=== PATIENT | male | born 1985 | race African-American/Black ===

== ENCOUNTER 2017-01-13 02:39 | Emergency (ER) | payer MEDICAID ==
[~2017-01-13] VITALS: Ht 182.9 cm; Wt 73.0 kg
[~2017-01-13 02:39] MED LIST: DIAZ5TAB PO; HYDR-3583 PO; MULT-135 PO; XARE10TA PO
[2017-01-13 02:42] VITALS: BP 99/55; PULSE 66; RESP 16; TEMP 97.6; O2SAT 99
[2017-01-13] MEDS ORDERED: ORPHENADRINE INJ 60 MG/2 ML AMP IM ONE (03:30)
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
--- NOTE | 2017-01-13 04:07 | RADRPT ---
EXAM DATE/TIME: 01/13/2017 03:29 [facility] COMPARISON: CT CERVICAL SPINE W/O CONTRAST, October 15, 2015, 5:02. INDICATIONS : Trauma, fall. RADIATION DOSE: 37.64 CTDIvol (mGy) MEDICAL HISTORY : None SURGICAL HISTORY : Fusion, cervical. ENCOUNTER: Initial ACUITY: 1 day PAIN SCALE: 8/10 LOCATION: neck TECHNIQUE: Volumetric scanning of the cervical spine was performed. Multiplanar reconstructions i n the sagittal, coronal and oblique axial planes were performed. Using automated exposure control a nd adjustment of the mA and/or kV according to patient size, radiation dose was kept as low as reason ably achievable to obtain optimal diagnostic quality images. DICOM format image data is available e lectronically for review and comparison. FINDINGS: The sagittal reconstructions demonstrate normal alignment and normal prevertebral soft tissues. The d ens is intact and there is a normal atlantoaxial relationship. Patient again noted to be status post fusion at the C5-6 level. There is mild reversal of the normal cervical lordosis. The axial images demonstrate that the vertebral bodies and posterior elements are intact. The soft ti ssues are within normal limits. There is no evidence of acute fracture or malalignment. CONCLUSION: Negative trauma CT. Bong Braun MD on January 13, 2017 at 4:04 Board Certified Radiologist. This report was verified electronically.
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
--- NOTE | 2017-01-13 04:20 | RADRPT ---
EXAM DATE/TIME: 01/13/2017 03:34 [facility] COMPARISON: No previous studies available for comparison. INDICATIONS : Trauma, fall. Chronic back pain. RADIATION DOSE: 14.97 CTDIvol (mGy) ; Combined studies - Thoracic Spine/Lumbar Spine MEDICAL HISTORY : None SURGICAL HISTORY : IVC Filter placement. ENCOUNTER: Initial ACUITY: 1 day PAIN SCALE: 8/10 LOCATION: Paraspinal TECHNIQUE: Volumetric scanning of the thoracic spine was performed. Multiplanar reconstructions in the sagittal , coronal and oblique axial planes were performed. Using automated exposure control and adjustment o f the mA and/or kV according to patient size, radiation dose was kept as low as reasonably achievable to obtain optimal diagnostic quality images. DICOM format image data is available electronically f or review and comparison. FINDINGS: Sagittal images demonstrate that the vertebral bodies are intact. The disc space heights are preserve d with no hypertrophic change. There is a mild scoliosis. The axial images demonstrate that the vertebral bodies and posterior elements are intact. The visuali zed ribs are within normal limits. The paraspinous soft tissues are unremarkable. CONCLUSION: Negative trauma study. Bong Braun MD on January 13, 2017 at 4:17 Board Certified Radiologist. This report was verified electronically.
--- NOTE | 2017-01-13 04:22 | RADRPT ---
EXAM DATE/TIME: 01/13/2017 03:36 [facility] COMPARISON: No previous studies available for comparison. INDICATIONS : Trauma, fall. Chronic back pain. RADIATION DOSE: 14.97 CTDIvol (mGy) ; Combined studies - Thoracic Spine/Lumbar Spine MEDICAL HISTORY : None SURGICAL HISTORY : IVC Filter placement. ENCOUNTER: Initial ACUITY: 1 day PAIN SCALE: 8/10 LOCATION: Paraspinal TECHNIQUE: Volumetric scanning of the lumbar spine was performed. Multiplanar reconstructions in the sagittal, coronal and oblique axial planes were performed. Using automated exposure control and adjustment of the mA and/or kV according to patient size, radiation dose was kept as low as reasonably achievable t o obtain optimal diagnostic quality images. DICOM format image data is available electronically for review and comparison. FINDINGS: VERTEBRAE: Normal vertebral body height. There is no evidence of fracture. ALIGNMENT: No evidence of subluxation. T12-L1: The thecal sac has a normal diameter. No evidence of disc bulge or protrusion. The neural foramina are patent bilaterally. L1-L2: The thecal sac has a normal diameter. No evidence of disc bulge or protrusion. The neural foramina are patent bilaterally. L2-L3: The thecal sac has a normal diameter. No evidence of disc bulge or protrusion. The neural foramina are patent bilaterally. L3-L4: The thecal sac has a normal diameter. No evidence of disc bulge or protrusion. The neural foramina are patent bilaterally. L4-L5: The thecal sac has a normal diameter. No evidence of disc bulge or protrusion. The neural foramina are patent bilaterally. L5-S1: The thecal sac has a normal diameter. No evidence of disc bulge or protrusion. The neural foramina are patent bilaterally. The inferior vena cava filter is noted. CONCLUSION: Negative trauma CT with no acute fracture or malalignment. Bong Braun MD on January 13, 2017 at 4:19 Board Certified Radiologist. This report was verified electronically.
[2017-01-13] MEDS ORDERED: CYCL10TA PO (05:01)
== END 2017-01-13 05:30 | disposition home or self-care (01) ==
LOC: NEPD 02:39
DX: M54.9 Dorsalgia, unspecified (principal); M54.2 Cervicalgia; J45.909 Unspecified asthma, uncomplicated; F17.200 Nicotine dependence, unspecified, uncomplicated; W05.0XXA Fall from non-moving wheelchair, initial encounter; Z79.899 Other long term (current) drug therapy
CPT/HCPCS: 70450; 72125; 72128; 72131; 96372; 99284; J2360

== ENCOUNTER 2017-01-18 11:00 | Observation (INO) | payer MEDICAID ==
[2017-01-18] VITALS (7 sets, daily range): BP systolic 119–165; BP diastolic 60–101; PULSE 60–78; RESP 14–19; TEMP 97.5–98.2; O2SAT 96–99
[~2017-01-18] VITALS: Ht 180.3 cm; Wt 76.5 kg
[~2017-01-18 11:00] MED LIST changes: +CYCL10TA PO; -DIAZ5TAB PO; -HYDR-3583 PO; -MULT-135 PO
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
[2017-01-18] MEDS ORDERED: SODIUM CHLORIDE 0.9% FLUSH 10 ML FLUSH IVF PRN (11:30)
--- NOTE | 2017-01-18 11:52 | RADRPT ---
EXAM DATE/TIME: 01/18/2017 11:29 [facility] COMPARISON: CHEST SINGLE AP, January 21, 2016, 14:11. INDICATIONS : Chest pain MEDICAL HISTORY : Hypertension. Deep venous thrombosis SURGICAL HISTORY : IVC Filter placement. C-spine fusion. ENCOUNTER: Initial ACUITY: 1 day PAIN SCORE: 3/10 LOCATION: chest FINDINGS: A single view of the chest demonstrates the lungs to be symmetrically aerated without evidence of mas s, infiltrate or effusion. The cardiomediastinal contours are unremarkable. Osseous structures are intact. Cervical spinal fusion plate. CONCLUSION: Normal examination. Emiliano Escobedo Jr., MD on January 18, 2017 at 11:50 Board Certified Radiologist. This report was verified electronically.
[2017-01-18 12:15] LABS: AUTOMATED NEUTROPHIL # 2.3 TH/MM3 (1.8-7.7); BASOPHIL % 0.7 % (0.0-2.0); EOSINOPHIL % 0.9 % (0.0-4.0); HEMATOCRIT 38.3 % (39.0-51.0); HEMOGLOBIN 11.8 GM/DL (13.0-17.0); LYMPHOCYTE # 1.9 TH/MM3 (1.0-4.8); MEAN CELL VOLUME 73.9 FL (80.0-100.0); MEAN CORPUSCULAR HEMOGLOBIN 22.7 PG (27.0-34.0); MEAN CORPUSCULAR HGB CONC 30.7 % (32.0-36.0); MEAN PLATELET VOLUME 8.4 FL (7.0-11.0); MONO % 9.6 % (0.0-8.0); MONOCYTE # 0.5 TH/MM3 (0-0.9); NEUT % 48.8 % (16.0-70.0); PLATELET COUNT 177 TH/MM3 (150-450); RED BLOOD COUNT 5.19 MIL/MM3 (4.50-5.90); RED CELL DISTRIBUTION WIDTH 14.3 % (11.6-17.2); WHITE BLOOD COUNT 4.7 TH/MM3 (4.0-11.0)
[2017-01-18 12:26] LABS: INTERNATIONAL NORMALIZED RATIO 1.1 RATIO; PROTHROMBIN TIME - PATIENT 10.7 SEC (9.8-11.6)
[2017-01-18 12:27] LABS: D-DIMER LESS THAN 0.19 MG/L FEU (0.00-0.50)
[2017-01-18 12:32] LABS: BICARBONATE 27.1 MEQ/L (21.0-32.0); CREATININE 0.85 MG/DL (0.60-1.30); MAGNESIUM 1.8 MG/DL (1.5-2.5)
[2017-01-18 12:42] LABS: TROPONIN I 0.16 NG/ML (0.02-0.05)
[2017-01-18] MEDS ORDERED: ASPIRIN 81 MG CHEW TAB CHEW SCH (13:15)
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
[2017-01-18] MEDS ORDERED: SODIUM CHLORIDE 0.9% FLUSH 10 ML FLUSH IV FLUSH PRN (15:00)
[2017-01-18] MEDS ORDERED: NITROGLYCERIN 0.4 MG SL 25 TABS/BTL SL PRN (15:00)
[2017-01-18] MEDS ORDERED: MORPHINE SULFATE 2 MG/ML INJ IV PUSH PRN (16:00)
[2017-01-18] MEDS: ACETAMINOPHEN 500 MG CPLT PO PRN ×2 (16:04→22:43)
[2017-01-18] MEDS: RIVAROXABAN 10 MG TAB PO SCH (16:06)
[2017-01-18] MEDS: SODIUM CHLOR 0.9% 1000 ML INJ 1,000 ML IV SCH (16:06)
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
[2017-01-18 18:41] LABS: TROPONIN I 0.09 NG/ML (0.02-0.05)
[2017-01-18] MEDS ORDERED: RESP: ALBUTEROL 2.5 MG/IPRATROPIUM 0.5 MG NEB (PRN) NEB (19:00)
[2017-01-18] MEDS ORDERED: cloNIDine HCL 0.1 MG TAB PO PRN (19:00)
[2017-01-18] MEDS: FAMOTIDINE 20 MG TAB PO SCH (20:59)
[2017-01-18] MEDS: SODIUM CHLORIDE 0.9% FLUSH 10 ML FLUSH IV FLUSH SCH (20:59)
[2017-01-18 23:49] LABS: TROPONIN I 0.05 NG/ML (0.02-0.05)
[2017-01-19] VITALS: BP 149/92; PULSE 63; PULSE 66; RESP 22; TEMP 98.8; O2SAT 95
[2017-01-19] MEDS: SODIUM CHLOR 0.9% 1000 ML INJ 1,000 ML IV SCH ×2 (01:27→09:45)
[2017-01-19 04:00] VITALS: BP 146/85; PULSE 69; RESP 18; TEMP 98.3; O2SAT 95
[2017-01-19 04:10] VITALS: PULSE 63
[2017-01-19] MEDS: ACETAMINOPHEN 500 MG CPLT PO PRN (05:42)
[2017-01-19 06:16] LABS: BACTERIA, URINE MANY /hpf; BILIRUBIN, URINE NEG (NEG); BLOOD, URINE NEG (NEG); GLUCOSE,URINE NEG (NEG); KETONE, URINE NEG (NEG); MUCUS URINE FEW /lpf (OCC); NITRITE,URINE NEG (NEG); SQUAMOUS EPITHELIAL CELL URINE 2 /hpf (0-5); URINE COLOR YELLOW (YELLW/STRAW); URINE LEUKOCYTE ESTERASE NEG (NEG)
[2017-01-19] MEDS: SODIUM CHLORIDE 0.9% FLUSH 10 ML FLUSH IV FLUSH SCH (07:28)
[2017-01-19 08:00] VITALS: BP 159/99; PULSE 61; RESP 18; TEMP 98.2; O2SAT 99
[2017-01-19 08:46] LABS: AUTOMATED NEUTROPHIL # 2.9 TH/MM3 (1.8-7.7); BASOPHIL % 0.6 % (0.0-2.0); EOSINOPHIL # 0.1 TH/MM3 (0-0.4); HEMATOCRIT 33.8 % (39.0-51.0); HEMOGLOBIN 10.7 GM/DL (13.0-17.0); LYMPH % 37.4 % (9.0-44.0); LYMPHOCYTE # 2.1 TH/MM3 (1.0-4.8); MEAN CELL VOLUME 73.3 FL (80.0-100.0); MEAN CORPUSCULAR HEMOGLOBIN 23.3 PG (27.0-34.0); MEAN CORPUSCULAR HGB CONC 31.8 % (32.0-36.0); MEAN PLATELET VOLUME 8.6 FL (7.0-11.0); MONO % 9.2 % (0.0-8.0); MONOCYTE # 0.5 TH/MM3 (0-0.9); NEUT % 51.8 % (16.0-70.0); PLATELET COUNT 162 TH/MM3 (150-450); RED BLOOD COUNT 4.61 MIL/MM3 (4.50-5.90); RED CELL DISTRIBUTION WIDTH 14.3 % (11.6-17.2); WHITE BLOOD COUNT 5.7 TH/MM3 (4.0-11.0)
[2017-01-19] MEDS ORDERED: ASPIRIN 81 MG CHEW TAB PO SCH (09:00)
[2017-01-19 09:09] LABS: BICARBONATE 23.7 MEQ/L (21.0-32.0); CALCIUM 8.1 MG/DL (8.5-10.1); CHOLESTEROL/ HDL RATIO 2.54 RATIO; CREATININE 0.79 MG/DL (0.60-1.30); HDL CHOLESTEROL 45.5 MG/DL (40.0-60.0)
[2017-01-19] MEDS: RIVAROXABAN 10 MG TAB PO SCH (09:44)
[2017-01-19] MEDS: FAMOTIDINE 20 MG TAB PO SCH (09:44)
[2017-01-19] MEDS ORDERED: IOHEXOL 350 MG/ML 10 ML VIAL (for RAD DIAG) IVCONTRAST ONE (10:21)
--- NOTE | 2017-01-19 11:01 | RADRPT ---
EXAM DATE/TIME: 01/19/2017 10:15 [facility] COMPARISON: No previous studies available for comparison. INDICATIONS : Chest pain, evaluate for aortic dissection. IV CONTRAST: 99 cc Omnipaque 350 (iohexol) IV RADIATION DOSE: 15.56 CTDIvol (mGy) MEDICAL HISTORY : Deep venous thrombosis. SURGICAL HISTORY : Fusion, cervical. ENCOUNTER: Initial ACUITY: 1 week PAIN SCALE: 4/10 LOCATION: chest TECHNIQUE: Volumetric scanning was performed using a multi-row detector CT scanner. The data was post processed with a variety of visualization algorithms including full volume maximum intensity projection, multi -planar sliding thin slab reformation, curved planar reformation, and surface rendering techniques. Using automated exposure control and adjustment of the mA and/or kV according to patient size, radiat ion dose was kept as low as reasonably achievable to obtain optimal diagnostic quality images. DICOM format image data is available electronically for review and comparison. FINDINGS: Thoracic/abdominal aorta: The aorta is normal in caliber and course. No aneurysm, dissection, or stenosis. Arch vessels are pat ent. The celiac, SMA, CHITRA, renal arteries, and inflow vessels are widely patent. Heart and mediastinum: The heart is normal in size. No pericardial effusion. Pulmonary arteries are normal in caliber. No ad enopathy. Abdominal viscera: There is a 6 mm nodular area of early arterial enhancement involving the central portion of segment 4 of the liver directly adjacent to the middle hepatic vein. This is an arterial phase exam. The remai samir aspects of liver unremarkable. This is felt related to the early phase of the study. No discrete mass. Gallbladder is unremarkable. Portal vein is only partially opacified due to the arterial phase of the exam. Varicosity seen low within the anterior abdominal wall in this young patient. There is luminal change in the caliber of the left common iliac vein as it crosses the posterior margin of the right common iliac artery. An IVC filter is noted. Lung parenchyma: Linear areas of scarring or atelectasis within each lung base. No mass or infiltrate. CONCLUSION: 1. No aortic dissection. 2. No acute or mality. 3. 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 An IVC filter is noted. The Emiliano Escobedo Jr., MD on January 19, 2017 at 10:44 Board Certified Radiologist. This report was verified electronically.
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
[2017-01-19 16:00] VITALS: BP 159/90; PULSE 59; RESP 20; TEMP 98.6; O2SAT 94
--- NOTE | 2017-01-19 16:04 | HHI.DCPOC ---
Discharge Care Plan Diagnosis: (1) Chest pain Goals to Promote Your Health * To prevent worsening of your condition and complications * To maintain your health at the optimal level Directions to Meet Your Goals Take your medications as prescribed Follow your dietary instruction Follow activity as directed Keep your appointments as scheduled Take your immunizations and boosters as scheduled If your symptoms worsen call your PCP, if no PCP go to Urgent Care Center or Emergency Room Smoking is Dangerous to Your Health. Avoid second hand smoke Call the 24-hour hour crisis hotline for domestic abuse at Juwan Murray MD R2 Jan 19, 2017 16:04
--- NOTE | 2017-01-19 16:54 | EKG ---
Date Performed: 01/18/2017 Time Performed: 12:24:27 PTAGE: 31 years EKG: SINUS BRADYCARDIA ST ELEVATION, PROBABLY EARLY REPOLARIZATION NONSPECIFIC T-WAVE ABNORMALIT Y Since previous tracing, no significant change noted BORDERLINE ECG PREVIOUS TRACING : 01/21/2016 14.15 DOCTOR: Helena Jones Interpretating Date/Time 01/19/2017 16:53:17
--- NOTE | 2017-01-19 16:54 | EKG ---
Date Performed: 01/18/2017 Time Performed: 17:25:19 PTAGE: 31 years EKG: SINUS BRADYCARDIA MODERATE VOLTAGE CRITERIA FOR LVH, CONSIDER NORMAL VARIANT NONSPECIFIC T- WAVE ABNORMALITY Since previous tracing, no significant change noted BORDERLINE ECG PREVIOUS TRACING : 01/18/2017 12.24 DOCTOR: Helena Jones Interpretating Date/Time 01/19/2017 16:53:38
--- NOTE | 2017-01-19 16:54 | EKG ---
Date Performed: 01/18/2017 Time Performed: 23:27:46 PTAGE: 31 years EKG: Sinus rhythm Prolonged QT interval Inferior T wave changes may be normal for age Since previous tracing, no signi ficant change noted Borderline ECG PREVIOUS TRACING : 01/18/2017 17.25 DOCTOR: Helena Jones Interpretating Date/Time 01/19/2017 16:53:55
--- NOTE | 2017-01-19 17:41 | ECHRPT ---
Indication: CORONARY ATHEROSCLEROSIS CONCLUSIONS Normal left ventricular size. Wall thickness is normal. The left ventricular systolic function is normal with an estimated ejection fraction in the range of 55-60%. BP: 146 / 85 HR: 69 Rhythm: MEASUREMENTS (Male / Female) Normal Values Technical Quality:Good 2D ECHO LV Diastolic Diameter PLAX 4.0 cm 4.2 - 5.9 / 3.9 - 5.3 cm LV Systolic Diameter PLAX 3.1 cm IVS Diastolic Thickness 1.2 cm 0.6 - 1.0 / 0.6 - 0.9 cm LVPW Diastolic Thickness 1.0 cm 0.6 - 1.0 / 0.6 - 0.9 cm LV Relative Wall Thickness 0.5 RV Internal Dim ED PLAX 2.0 cm DOPPLER Mitral E Point Velocity 77.0 cm/s Mitral A Point Velocity 44.9 cm/s Mitral E to A Ratio 1.7 TR Peak Velocity 124.0 cm/s TR Peak Gradient 6.2 mmHg FINDINGS LEFT VENTRICLE Normal left ventricular size. Wall thickness is normal. The left ventricular systolic function is normal with an estimated ejection fraction in the range of 55-60%. RIGHT VENTRICLE Normal right ventricular size and systolic function. LEFT ATRIUM The left atrial size is normal. RIGHT ATRIUM The right atrial size is normal. ATRIAL SEPTUM Normal atrial septal thickness without atrial level shunting by limited color doppler interrogation. AORTA The aortic root and proximal ascending aorta are normal in size on limited imaging. MITRAL VALVE Structurally normal mitral valve. No mitral valve stenosis or regurgitation. AORTIC VALVE Trileaflet aortic valve. No aortic valve stenosis or regurgitation. TRICUSPID VALVE Structurally normal tricuspid valve. No tricuspid valve stenosis or regurgitation. PULMONARY VALVE The pulmonary valve is not well visualized. VESSELS The inferior vena cava is normal in size. PERICARDIUM No pericardial effusion. Henrry Capellan MD (Electronically Signed) Final Date:19 January 2017 17:40
--- NOTE | 2017-01-19 18:54 | PD.AMA ---
Lb De La Fuente MD R1 01/19/17 1854: Against Medical Advice Note Discharge Disposition: Against Medical Advice Pt Condition on Discharge: Stable Recommended Treatment Course Pt was to stay until ECHO results were read and interpreted, and plan developed for his care. AMA Statement Patient Amy Whiteside has decided to leave the hospital against medical advice. This patient has the capacity to refuse care and understands the risks of leaving, including permanent disability and/or , and has had an opportunity to ask questions about his condition. The patient has been informed that he may return for care at any time, and follow up has been arranged/ advised. Kianna Joseph MD 01/20/17 1644: Against Medical Advice Note Discharge Disposition: Against Medical Advice AMA Statement Because of the severing of the patient physician relationship, he will not be accepted back on the family medicine team if he returns imminently Lb De La Fuente MD R1 Jan 19, 2017 18:54 Kianna Joseph MD Jan 20, 2017 16:44
== END 2017-01-19 18:20 | disposition left against medical advice (07) ==
LOC: NEPE 11:00 → UNDOADMIN 13:41 → NEDA 13:41 → INTOOBSV 15:07 → NEDA 15:07 → N04B 15:39 → NEDA 15:39 → UNDODISIN 01-19 18:20
PROVIDERS: ADMIT Family Medicine; ATTEND Family Medicine
DX: R07.9 Chest pain, unspecified (principal); G82.50 Quadriplegia, unspecified; J45.909 Unspecified asthma, uncomplicated; R00.1 Bradycardia, unspecified; K21.9 Gastro-esophageal reflux disease without esophagitis; F17.210 Nicotine dependence, cigarettes, uncomplicated; Z98.1 Arthrodesis status; R00.2 Palpitations; R51 Headache; R74.8 Abnormal levels of other serum enzymes; M62.838 Other muscle spasm; F12.90 Cannabis use, unspecified, uncomplicated; Z79.82 Long term (current) use of aspirin; Z86.711 Personal history of pulmonary embolism; Z79.01 Long term (current) use of anticoagulants; Z79.899 Other long term (current) drug therapy
CPT/HCPCS: 71010; 71275; 74174; 80048; 80061; 80307; 81001; 82550; 82552; 83735; 84484; 85025; 85379; 85610; 85652; 85730; 86140; 87086; 93005; 93306; 94150; 96360; 96361; 97162; 97167; 99285; G0378; J7030; Q9967